=== PATIENT | female | born 2005 | race Two or more races ===

== ENCOUNTER 2024-07-15 14:40 | Inpatient (IN) | payer MEDICAID, OTHER ==
[~2024-07-15] VITALS: Ht 162.6 cm; Wt 68.9 kg
--- NOTE | 2024-07-15 15:01 | ED.PDOC ---
GI ASSESSMENT HPI Comments 19 year old female accompanied by mother presents to the ED with chief complaint of abdominal pain. Patient reports that she has been experiencing 11/16 RUQ abdominal pain that radiates to her back for the past 24 hours. Patient relays that she has history of gallstones, confirmed by US ordered by her PCP a month ago. Patient states she has an upcoming appointment in 2-3 weeks for surgery, however, her pain has worsened and is lasting longer than it usually does. Patient denies any N/V/D, fever, chills, dysuria, dizziness, or chest pain. Time Seen by MD: 14:57 Reviewed Notes: Nurses Notes, Medications, Allergies Allergies: Coded Allergies: NO KNOWN ALLERGIES (Unverified , 07/15/24) Information Source: Patient, Relative (Mother) Mode of Arrival: Ambulatory Timing: Days Duration: Since onset Prehospital treatment: None Quality: Sharp Vomitus: None Stool: Normal Severity: Moderate Recent: None Recent Hx of: None Pain Location: RUQ Modifying Factors: Nothing Associated sign and symptoms: Abdominal Pain Past Medical History PAST MEDICAL HISTORY: Gallstones Surgical History (Other): Lt ovarian tumor removal SOLAR ENERGY SPECIALIST History: Denies all SOLAR ENERGY SPECIALIST Hx Family History Family History: Reviewed,noncontributory to illness Social History Smoker: Non-Smoker Alcohol: Denies ETOH Use Drugs: Denies Drug Use Lives In: Home Constitutional: denies: chills, diaphoresis, fatigue, fever, malaise, sweats, weakness, others EENTM: denies: blurred vision, double vision, ear bleeding, ear discharge, ear drainage, ear pain, ear ringing, eye pain, eye redness, hearing loss, mouth pain, mouth swelling, nasal discharge, nose bleeding, nose congestion, nose pain, photophobia, tearing, throat pain, throat swelling, voice changes, others Respiratory: denies: cough, hemoptysis, orthopnea, SOB at rest, shortness of breath, SOB with excertion, stridor, wheezing, others Cardiovascular: denies: chest pain, dizzy spells, diaphoresis, Dyspnea on exertion, edema, irregular heart beat, left arm pain, lightheadedness, palpitations, PND, syncope, others Gastrointestinal: reports: abdominal pain; denies: abdomen distended, blood streaked bowels, constipated, diarrhea, dysphagia, difficulty swallowing, hematemesis, melena, nausea, poor appetite, poor fluid intake, rectal bleeding, rectal pain, vomiting, others Genitourinary: denies: abnormal vagina bleeding, burning, dyspareunia, dysuria, flank pain, frequency, hematuria, incontinence, pain, , vagina discharge, urgency, others Neurological: denies: dizziness, fainting, headache, left sided numbness, left sided weakness, numbness, paresthesia, pre-existing deficit, right sided numbness, right sided weakness, seizure, speech problems, tingling, tremors, weakness, others Musculoskeletal: denies: back pain, gout, joint pain, joint swelling, muscle pain, muscle stiffness, neck pain, others Integumetry: denies: bruises, change in color, change in hair/nails, dryness, laceration, lesions, lumps, rash, wounds, others Allergic/Immunocompromised: denies: Difficulty Healing, Frequent Infections, Hives, Itching, others Hematologic/Lymphatic: denies: anemia, blood clots, easy bleeding, easy bruising, swollen glands, others Endocrine: denies: excessive hunger, excessive sweating, excessive thirst, excessive urination, flushing, intolerance to cold, intolerance to heat, unexplained weight gain, unexplained weight loss, others Psychiatric: denies: anxiety, bipolar disorder, depression, hopeless, panic disorder, schizophrenia, sleepless, suicidal, others All Other Systems: Reviewed and Negative Physical Exam General Appearance: Moderate Distress HEENT: Normal ENT Inspection, Pharynx Normal, TMs Normal Neck: Full Range of Motion, Non-Tender, Normal, Normal Inspection Respiratory: Chest Non-Tender, Lungs Clear, No Accessory Muscle Use, No Respiratory Distress, Normal Breath Sounds Cardiovascular: No Edema, No JVD, No Murmur, No Gallop, Normal Peripheral P ulses, Regular Rate/Rhythm Breast Exam: Deferred Gastrointestinal: Epigastric, No Organomegaly, No Pulsatile Mass, Normal Bowel Sounds, Soft, Tenderness Genitalia: Deferred Pelvic: Deferred Rectal: Deferred Extremities: No calf tenderness, Normal capillary refill, Normal inspection, Normal range of motion, Non-tender, No pedal edema Musculoskeletal : Apperance: Normal Neurologic: Alert, materials planning analyst II-XII nml as Tested, No Motor Deficits, Normal Affect, Normal Mood, No Sensory Deficits Cerebellar Function: Normal Reflexes: Normal Skin: Dry, Normal Color, Warm Lymphatic: No Adenopathy Was a procedure done? Was a procedure done?: No GI differential Dx Differential Diagnosis: Appendicitis, Cholangitis, Cholecystitis, Gastritis/PUD, Gastroenteritis X-Ray, Labs, Meds, VS Vital Signs Date Time Temp Pulse Resp B/P (MAP) Pulse Ox O2 Delivery O2 Flow Rate FiO2 07/15/24 16:42 70 18 121/75 07/15/24 16:22 85 17 100 Room Air* 0 21 07/15/24 16:22 98.0 85 17 137/71 (93) 100 98.0 07/15/24 16:12 85 18 137/71 07/15/24 15:03 98.3 78 15 121/80 (94) 97 98.3 Lab Test 07/15/24 15:07 07/15/24 15:00 Range/Units White Blood Count 8.5 4.4-10.8 10^3/uL Red Blood Count 4.45 4.0-5.20 10^6/uL Hemoglobin 14.0 12.2-16.2 g/dL Hematocrit 41.7 36.0-46.0 % Mean Corpuscular Volume 93.7 80.0-100.0 fL Mean Corpuscular Hemoglobin 31.4 28.0-32.0 pg Mean Corpuscular Hemoglobin Concent 33.5 32.0-36.0 g/dL Red Cell Distribution Width 13.2 11.8-14.3 % Platelet Count 322 140-450 10^3/uL Mean Platelet Volume 7.3 6.9-10.8 fL Neutrophils (%) (Auto) 63.1 37.0-80.0 % Lymphocytes (%) (Auto) 25.5 10.0-50.0 % Monocytes (%) (Auto) 10.0 0.0-12.0 % Eosinophils (%) (Auto) 0.8 0.0-7.0 % Basophils (%) (Auto) 0.6 0.0-2.0 % Neutrophils # (Auto) 5.4 1.6-8.6 10 ^3/uL Lymphocytes # (Auto) 2.2 0.4-5.4 10 ^3/uL Monocytes # (Auto) 0.8 0-1.3 10 ^3/uL Eosinophils # (Auto) 0.1 0-0.8 10 ^3/uL Basophils # (Auto) 0 0-0.2 10 ^3/uL Nucleated Red Blood Cells 0.1 % Sodium Level 138 136-145 mmol/L Potassium Level 4.1 3.5-5.1 mmol/L Chloride Level 103 98-107 mmol/L Carbon Dioxide Level 29 20-31 mmol/L Anion Gap 6 5-15 Blood Urea Nitrogen 10 9-23 mg/dL Creatinine 0.71 0.550-1.02 mg/dL Glomerular Filtration Rate Calc 125 >90 mL/min BUN/Creatinine Ratio 14.1 10.0-20.0 Serum Glucose 86 74-106 mg/dL Calcium Level 10.6 H 8.7-10.4 mg/dL Total Bilirubin 0.3 0.2-1.0 mg/dL Aspartate Amino Transferase (AST) 20 13-40 U/L Alanine Aminotransferase (ALT) 22 7-40 U/L Alkaline Phosphatase 67 46-116 U/L Total Protein 7.4 5.7-8.2 g/dL Albumin 4.8 3.2-4.8 g/dL Lipase 50 12-53 U/L Urine Color Colorless Yellow Urine Clarity Turbid H Clear Urine pH 7.0 5.0-9.0 Urine Specific [place] 1.014 1.001-1.035 Urine Protein Negative Negative Urine Ketones Negative Negative Urine Blood 2+ H Negative /uL Urine Nitrite Negative Negative Urine Bilirubin Negative Negative Urine Urobilinogen Normal Negative mg/dL Urine Leukocyte Esterase Trace Negative /uL Urine RBC 1 0 - 4 /hpf Urine Microscopic WBC 3 0-5 /HPF Urine Squamous Epithelial Cells Few <5 /hpf Urine Bacteria Few H None Seen /hpf Urine Yeast (Budding) Few None Seen /hpf Urine Glucose Normal Normal mg/dL Urine Test Negative Negative Current Medications Medications (Trade) Dose Ordered Sig/Frank Route Start Time Stop Time Status Last Admin Ondansetron HCl (Zofran) 4 mg ONCE ONCE IV 07/15/24 15:00 07/15/24 15:01 DC 07/15/24 16:08 Sodium Chloride 1,000 ml @ 1,000 mls/hr Q1H ONCE IVB 07/15/24 15:00 07/15/24 15:59 DC 07/15/24 16:08 Morphine Sulfate 4 mg ONCE ONCE IV 07/15/24 15:00 07/15/24 15:01 DC 07/15/24 16:12 Pantoprazole Sodium (Protonix) 40 mg ONCE ONCE IV 07/15/24 15:00 07/15/24 15:01 DC 07/15/24 16:08 Ultrasound of the gallbladder shows: IMPRESSION: 1. Cholelithiasis and probable cholecystitis The patient's CBC and chemistry panel are within normal limits. The urine test is negative for infection at this time The test is negative The patient was given a bolus of normal saline at 1 L bolus The patient was given morphine 4 mg IV push for the pain The patient was given Zofran 4 mg IV push for the nausea The patient was given Protonix 40 mg IV push The patient was being admitted to the hospitalist Images Reviewed?: Images reviewed and evaluated by me Time of 1ST Reevaluation: 17:41 Reevaluation 1ST: Unchanged Patient Education/Counseling: Diagnosis, Treatment, Prognosis Family Education/Counseling: Diagnosis, Treatment, Prognosis Additional Information -Reviewed patient's previous visit(s): None - The following tests were ordered, and results were reviewed by me: Gallbladder US, CBC, CMP, Lipase, UA, Urine preg - Additional information was gathered from interviewing the following independent Historian: Mother - I reviewed and agreed with the following test results read by other provider: Gallbladder US - I discussed treatments and results with medical personnel and: patient and mother Comprehensive systems review obtained and negative except for what is stated in the HPI. Departure 1 Departure Time of Disposition: 17:41 Impression: Primary Impression: Intractable abdominal pain Additional Impression: Acute cholecystitis Disposition: ADMITTED INPATIENT Admit to: Med Surg Condition: Fair Critical Care Note Critical Care Time?: No Stability Stability form required: Yes Unstable for transfer: ED Physician Assesment (Clinical assesment) Heart Score Heart Score: Heart Score Response (Comments) Value History N/A 0 EKG N/A 0 Age N/A 0 Risk Factors N/A 0 Troponin N/A 0 Total 0 I personally scribed for СЕРГЕЙ GRIDER MD ([email or web address]) on 07/15/24 at 15:01. Electronically submitted by Abdon Fields ([email or web address]). I personally scribed for СЕРГЕЙ GRIDER MD ([email or web address]) on 07/15/24 at 15:02. Electronically submitted by Abdon Fields ([email or web address]). СЕРГЕЙ GRIDER MD Jul 15, 2024 15:01
[2024-07-15 15:26] LABS: Basophils # (auto) 0 10 ^3/uL (0-0.2); Basophils % (auto) 0.6 % (0.0-2.0); Eosinophils # (auto) 0.1 10 ^3/uL (0-0.8); Eosinophils % (auto) 0.8 % (0.0-7.0); Hematocrit 41.7 % (36.0-46.0); Lymphocytes # (auto) 2.2 10 ^3/uL (0.4-5.4); Lymphocytes % (auto) 25.5 % (10.0-50.0); Mean Corpuscular Hemoglobin 31.4 pg (28.0-32.0); Mean Corpuscular Hgb Conc. 33.5 g/dL (32.0-36.0); Mean Corpuscular Volume 93.7 fL (80.0-100.0); Monocytes # (auto) 0.8 10 ^3/uL (0-1.3); Neutrophils # (auto) 5.4 10 ^3/uL (1.6-8.6); Neutrophils % (auto) 63.1 % (37.0-80.0); Nucleated Red Blood Cells % 0.1 %; Platelet Count (auto) 322 10^3/uL (140-450); Red Blood Cells 4.45 10^6/uL (4.0-5.20); Red Cell Distribution Width 13.2 % (11.8-14.3); White Blood Cell 8.5 10^3/uL (4.4-10.8)
[2024-07-15 15:37] LABS: Alanine Aminotransferase 22 U/L (7-40); Albumin 4.8 g/dL (3.2-4.8); Alkaline Phosphatase 67 U/L (46-116); Anion Gap 6 (5-15); Aspartate Aminotransferase 20 U/L (13-40); BUN/Creatinine Ratio 14.1 (10.0-20.0); Blood Urea Nitrogen 10 mg/dL (9-23); Carbon Dioxide 29 mmol/L (20-31); Chloride 103 mmol/L (98-107); Glucose 86 mg/dL (74-106); Lipase 50 U/L (12-53); Potassium 4.1 mmol/L (3.5-5.1); Sodium 138 mmol/L (136-145); Total Protein 7.4 g/dL (5.7-8.2)
[2024-07-15 15:38] LABS: Bilirubin, Total 0.3 mg/dL (0.2-1.0); Calcium 10.6 mg/dL (8.7-10.4)
[2024-07-15] MEDS: SODIUM CHLORIDE 0.9% 1,000 ML IVB ONE (16:08)
[2024-07-15] MEDS: PANTOPRAZOLE 40 MG/10 ML VIAL INJ IV ONE (16:08)
[2024-07-15] MEDS: ONDANSETRON HCL 4 MG/2 ML VIAL IV ONE (16:08)
[2024-07-15] MEDS: MORPHINE SULFATE 4 MG/ML SYR/VIAL IV ONE (16:12)
[2024-07-15 16:22] VITALS: PULSE 85; RESP 17; O2SAT 100
--- NOTE | 2024-07-15 16:29 | DVH ---
EXAM: US GALLBLADDER HISTORY: pain COMPARISON: None TECHNIQUE: Right upper quadrant ultrasound was performed. FINDINGS: The liver is heterogeneous but normal in echotexture. Liver measures 16.65 cm in span. Portal vein flow is hepatopetal. There are innumerable gallstones in the gallbladder. largest measures 7.25 mm. Gallbladder wall measures 3.3 mm which is abnormal. Right kidney measures 9.7 cm in length out cyst stone or hydronephrosis.. There was a positive can filling machine operator is Araujo's sign IMPRESSION: 1. Cholelithiasis and probable cholecystitis
[2024-07-15 16:41] LABS: Urine Bacteria FEW /hpf (None Seen); Urine Blood 2+ /uL (Negative); Urine Budding Yeast FEW /hpf (None Seen); Urine Clarity Turbid (Clear); Urine Color Colorless (Yellow); Urine Protein, UAD Negative (Negative); Urine Specific Gravity 1.014 (1.001-1.035); Urine Squamous Epithelial Cell FEW /hpf (<5); Urine Urobilinogen Normal (Negative); Urine WBC 3 /HPF (0-5)
[2024-07-16] MEDS: PANTOPRAZOLE 40 MG/10 ML VIAL INJ IV ONE ×2 (00:45→08:35)
[2024-07-16] MEDS: ONDANSETRON HCL 4 MG/2 ML VIAL IV ONE ×2 (02:22→07:45)
[2024-07-16] MEDS: cefTRIAXone 1GM/50ML D5W 50 ML IV ONE (02:22)
[2024-07-16] MEDS: MORPHINE SULFATE INJ 2 MG/ml SYRG IV ONE (02:23)
[2024-07-16] MEDS: metroNIDAZOLE 500MG/100ML 100 ML IV ONE (03:52)
[2024-07-16] MEDS: SODIUM CHLORIDE 0.9% 1,000 ML IV ONE (03:57)
[2024-07-16 04:58] VITALS: BP 116/74; PULSE 63; RESP 16; TEMP 97.5; O2SAT 100
--- NOTE | 2024-07-16 07:49 | DVHPNRES ---
Progress Note Date Seen: Jul 16, 2024 Resident Creating Document: EBEN CHAVEZ ANDREA Has the PT tested + for MRSA If YES, has PT been informed?: No Medical Necessity Reason Pt with a Central, PICC or Fol: No Subjective Review of Systems Patient seen and examined at the bedside. Patient underwent laparoscopic cholecystectomy, with no preoperative and postop complication. Patient lying comfortably on bed with no active complaint. Patient reports: No new complaints, Feels better Objective vital signs Vital Sign Date Time Temp Pulse Resp B/P (MAP) Pulse Ox O2 Delivery O2 Flow Rate FiO2 07/16/24 04:58 63 16 100 Room Air* 0 21 07/16/24 04:58 97.5 116/74 (88) 97.5 Total Intake and Output 07/15/24 07/15/24 07/16/24 15:00 23:00 07:00 Intake Total 1000 ml Balance 1000 ml medications General Appearance: Alert, Oriented X3, Cooperative, No acute distress HEENT: Atraumatic, PERRLA, EOMI, Mucous membrane moist/pink Respiratory: Clear to auscultation, Normal air movement Cardiovascular: Regular rate, Normal S1, Normal S2, No murmurs, no chest wall tenderness Abdominal: Abdomen is soft and mildly tender, dressings are intact with no active bleeding or inflammation around the surgical area. Extremities: No clubbing, No cyanosis, No edema, Normal pulses, No tenderness/swelling Skin: No rashes, No breakdown, No significant lesion Neuro: Normal gait, Normal speech, Strength at 5/5 X4 ext, Normal tone, Sensation intact, Cranial nerves 3-12 NL, Reflexes 2+ Psych/Mental Status: Mental status NL, Mood NL Examination General Appearance: Alert, Oriented X3, Cooperative, No acute distress HEENT: Atraumatic, PERRLA, EOMI, Mucous membrane moist/pink Respiratory: Clear to auscultation, Normal air movement Cardiovascular: Regular rate, Normal S1, Normal S2, No murmurs, no chest wall tenderness Abdominal: Reports abdominal pain, nausea and vomiting Extremities: No clubbing, No cyanosis, No edema, Normal pulses, No tenderness/swelling Skin: No rashes, No breakdown, No significant lesion Neuro: Normal gait, Normal speech, Strength at 5/5 X4 ext, Normal tone, Sensation intact, Cranial nerves 3-12 NL, Reflexes 2+ Psych/Mental Status: Mental status NL, Mood NL laboratory and microbiology Laboratory Tests 07/15/24 15:07 Test 07/15/24 15:07 Range/Units Serum Glucose 86 74-106 mg/dL Labs and/or images reviewed: Labs reviewed by me, Image(s) reviewed by me Problem List/Assessment/Plan Problem List/Assessment/Plan Gallstone with cholecystitis Status post laparoscopic cholecystectomy with no perioperative and postop complication, abdomen is soft, mildly tender, dressings are intact with no active bleeding or inflammation seen around the surgical area. IV fluid Empiric antibiotic, Flagyl and Cipro Pain management Asthma, stable Continue home meds DIET: Clear liquid diet GI PROPHYLAXIS:: Protonix CODE STATUS: Goal of care discussed for more than 18 minutes, full code DISPOSITION: Med/surge Patient's status and plan discussed with the patient at patient's mother and grandmother at bedside. Case discussed with Dr. Junior. Plan discussed with: Patient, Other (Mother and grandmother at the bedside, and RN) My Orders My Orders Orders - EBEN CHAVEZ RESDIENT Procedure Category Date Status Time Complete Blood Count LAB 07/16/24 Transmitted 07:45 Comprehensive LAB 07/16/24 Transmitted Metabolic Panel 07:45 Magnesium LAB 07/16/24 Transmitted 07:45 Thyroid Stimulating LAB 07/16/24 Transmitted Hormone 07:45 Lipid Panel LAB 07/16/24 Verified 07:45 Drug Screen LAB 07/16/24 Verified 07:45 PTPTT LAB 07/16/24 Verified 07:45 D-Dimer LAB 07/16/24 Verified 07:45 Pantoprazole PHA 07/16/24 Verified (Protonix) 07:45 Pantoprazole PHA 07/16/24 Verified (Protonix) 10:00 Ondansetron Hcl PHA 07/16/24 Verified (Zofran) 07:45 Ondansetron Hcl PHA 07/16/24 Verified (Zofran) 07:45 Metronidazole Ivpb PHA 07/16/24 Verified Flagyl 14:00 Ciprofloxacin PHA 07/16/24 Verified 400mg/200ml (Cipro Iv) 10:00 * Surgical Consult CONS 07/16/24 Verified 07:45 Morphine Sulfate PHA 07/16/24 Verified Injection 07:45 Electrocardigram EKG 07/16/24 Verified 07:45 Troponin-I Hs LAB 4/9/25 Verified 07:45 Date of Service: Jul 16, 2024 Billing Provider: MARIUM ANDERS MD Common Visit Codes: [id number] INP/OBS CARE(HIGH) EBEN CHAVEZ Jul 16, 2024 07:49 MARIUM ANDERS MD Jul 21, 2024 09:39
[2024-07-16] MEDS: MORPHINE SULFATE INJ 2 MG/ml SYRG IV PRN ×2 (08:35→23:11)
[2024-07-16 08:38] LABS: Basophils # (auto) 0 10 ^3/uL (0-0.2); Basophils % (auto) 0.2 % (0.0-2.0); Eosinophils # (auto) 0.1 10 ^3/uL (0-0.8); Eosinophils % (auto) 1.9 % (0.0-7.0); Hematocrit 37.4 % (36.0-46.0); Hemoglobin 12.6 g/dL (12.2-16.2); Lymphocytes # (auto) 2.3 10 ^3/uL (0.4-5.4); Lymphocytes % (auto) 33.9 % (10.0-50.0); Mean Corpuscular Hemoglobin 31.7 pg (28.0-32.0); Mean Corpuscular Hgb Conc. 33.7 g/dL (32.0-36.0); Monocytes # (auto) 0.6 10 ^3/uL (0-1.3); Monocytes % (auto) 8.1 % (0.0-12.0); Neutrophils # (auto) 3.8 10 ^3/uL (1.6-8.6); Neutrophils % (auto) 55.9 % (37.0-80.0); Platelet Count (auto) 263 10^3/uL (140-450); Red Blood Cells 3.98 10^6/uL (4.0-5.20); Red Cell Distribution Width 12.8 % (11.8-14.3); White Blood Cell 6.9 10^3/uL (4.4-10.8)
[2024-07-16 08:50] LABS: Alanine Aminotransferase 20 U/L (7-40); Alkaline Phosphatase 53 U/L (46-116); Anion Gap 5 (5-15); Aspartate Aminotransferase 16 U/L (13-40); BUN/Creatinine Ratio 13.9 (10.0-20.0); Blood Urea Nitrogen 10 mg/dL (9-23); Calcium 9.3 mg/dL (8.7-10.4); Carbon Dioxide 30 mmol/L (20-31); Chloride 105 mmol/L (98-107); Glucose 79 mg/dL (74-106); LDL Cholesterol 61 mg/dL (< 100); Magnesium 2.1 mg/dL (1.6-2.6); Sodium 140 mmol/L (136-145); Total Protein 6.3 g/dL (5.7-8.2); Triglycerides 46 mg/dL (< 150)
[2024-07-16 08:51] LABS: Bilirubin, Total 0.6 mg/dL (0.2-1.0); Cholesterol 141 mg/dL (< 200); HDL Cholesterol 70 mg/dL (40-59)
[2024-07-16 09:00] VITALS: BP 103/62; PULSE 60; RESP 16; TEMP 97.6; O2SAT 96
--- NOTE | 2024-07-16 09:03 | DVHHPRES ---
History of Present Illness Resident Creating Document: NIDHI LINTON RESIDENT History of Present Illness 19 F with PMH of GB stones , presented with complaints of RUQ abd pain associated with Nausea for last 1 day. pt mentions she has been seeing surgery for GB stones and was planning to have elective cholecystectomy. Patient describes her pain as 8/10, right upper quadrant, radiating to back. She denied any complaints of vomiting, diarrhea, constipation, hematochezia, melena Denied any chest pain, shortness of breath, dizziness, headache Past medical history GB stones Pots Past surgical history Left ovarian tumor removal July 2022 Social history Denied smoking, alcohol, marijuana or any other drug intake Medication history Fludrocortisone Allergic history Denied Review of Systems Review of Systems ROS Constitutional: No: Fever, Chills, Sweats, Weakness, Malaise, Other Eyes: No: Pain, Vision change, Conjunctivae inflammation, Eyelid inflammation, Other, Redness ENT: No: Ear pain, Ear discharge, Nose pain, Nose discharge, Nose congestion, Mouth pain, Mouth swelling, Throat pain, Throat swelling, Other Respiratory: No: Cough, Dry, Shortness of breath, SOB with excertion, Wheezing, Hemoptysis, Pleuritic Pain, Sputum, Wheezing, Other Cardiovascular: No: Chest Pain, Palpitations, Orthopnea, Paroxysmal Noc. Dyspnea, Edema, Lt Headedness, Other Gastrointestinal: Abdominal pain, nausea, denied vomiting, hematochezia, melena Musculoskeletal: No: other, neck pain, shoulder pain, arm pain, back pain, hand pain, leg pain, foot pain Neurological:; No: Weakness, Numbness, Incoordination, Change in speech, Confusion, Seizures Allergies: Coded Allergies: NO KNOWN ALLERGIES (Unverified , 07/15/24) Medications Current Medications Medications Dose Ordered Sig/Frank Route Start Time Stop Time Status Last Admin Dose Admin Pantoprazole Sodium 40 mg DAILY IV 07/17/24 10:00 Ondansetron HCl 4 mg Q4HPRN PRN IV 07/16/24 07:45 Metronidazole 100 ml @ 100 mls/hr Q8HR IV 07/16/24 14:00 Ciprofloxacin 200 ml @ 200 mls/hr Q12HR IV 07/16/24 10:00 Morphine Sulfate 1 mg Q4HP PRN IV 07/16/24 07:45 07/16/24 08:35 1 MG Exam Vital Signs Vital Signs Date Time Temp Pulse Resp B/P (MAP) Pulse Ox O2 Delivery O2 Flow Rate FiO2 07/16/24 08:35 60 16 103/62 07/16/24 04:58 100 Room Air* 0 21 07/16/24 04:58 97.5 97.5 Exam Examination General Appearance: Alert, Oriented X3, Cooperative, No acute distress HEENT: EOMI Respiratory: Clear to auscultation, Normal air movement Cardiovascular: Regular rate, Normal S1, Normal S2 Abdominal: Right upper quadrant and dizziness, Araujo sign positive Extremities: No cyanosis, No edema, Normal pulses, No tenderness/swelling Skin: No rashes, No breakdown Neuro: Normal gait, Normal speech, Strength at 5/5 X4 ext, Normal tone, Sensation intact, Cranial nerves 3-12 NL, Reflexes 2+ Psych/Mental Status: Mental status NL, Mood NL Labs/Xrays Labs Test 07/16/24 08:16 07/15/24 15:07 07/15/24 15:00 Range/Units White Blood Count 6.9 4.4-10.8 10^3/uL Red Blood Count 3.98 L 4.0-5.20 10^6/uL Hemoglobin 12.6 12.2-16.2 g/dL Hematocrit 37.4 # 36.0-46.0 % Mean Corpuscular Volume 94.0 80.0-100.0 fL Mean Corpuscular Hemoglobin 31.7 28.0-32.0 pg Mean Corpuscular Hemoglobin Concent 33.7 32.0-36.0 g/dL Red Cell Distribution Width 12.8 11.8-14.3 % Platelet Count 263 140-450 10^3/uL Mean Platelet Volume 6.9 6.9-10.8 fL Neutrophils (%) (Auto) 55.9 37.0-80.0 % Lymphocytes (%) (Auto) 33.9 10.0-50.0 % Monocytes (%) (Auto) 8.1 0.0-12.0 % Eosinophils (%) (Auto) 1.9 0.0-7.0 % Basophils (%) (Auto) 0.2 0.0-2.0 % Neutrophils # (Auto) 3.8 1.6-8.6 10 ^3/uL Lymphocytes # (Auto) 2.3 0.4-5.4 10 ^3/uL Monocytes # (Auto) 0.6 0-1.3 10 ^3/uL Eosinophils # (Auto) 0.1 0-0.8 10 ^3/uL Basophils # (Auto) 0 0-0.2 10 ^3/uL Nucleated Red Blood Cells 0.0 % Sodium Level 140 136-145 mmol/L Potassium Level 4.0 3.5-5.1 mmol/L Chloride Level 105 98-107 mmol/L Carbon Dioxide Level 30 20-31 mmol/L Anion Gap 5 5-15 Blood Urea Nitrogen 10 9-23 mg/dL Creatinine 0.72 0.550-1.02 mg/dL Glomerular Filtration Rate Calc 123 >90 mL/min BUN/Creatinine Ratio 13.9 10.0-20.0 Serum Glucose 79 74-106 mg/dL Calcium Level 9.3 8.7-10.4 mg/dL Magnesium Level 2.1 1.6-2.6 mg/dL Total Bilirubin 0.6 0.2-1.0 mg/dL Aspartate Amino Transferase (AST) 16 13-40 U/L Alanine Aminotransferase (ALT) 20 7-40 U/L Alkaline Phosphatase 53 46-116 U/L Troponin I High Sensitivity < 3 L </=34 ng/L Total Protein 6.3 5.7-8.2 g/dL Albumin 4.0 3.2-4.8 g/dL Triglycerides Level 46 < 150 mg/dL Cholesterol Level 141 < 200 mg/dL LDL Cholesterol 61 < 100 mg/dL HDL Cholesterol 70 H 40-59 mg/dL Thyroid Stimulating Hormone (TSH) 1.21 0.55-4.78 uIU/mL Lipase 50 12-53 U/L Urine Color Colorless Yellow Urine Clarity Turbid H Clear Urine pH 7.0 5.0-9.0 Urine Specific [place] 1.014 1.001-1.035 Urine Protein Negative Negative Urine Ketones Negative Negative Urine Blood 2+ H Negative /uL Urine Nitrite Negative Negative Urine Bilirubin Negative Negative Urine Urobilinogen Normal Negative mg/dL Urine Leukocyte Esterase Trace Negative /uL Urine RBC 1 0 - 4 /hpf Urine Microscopic WBC 3 0-5 /HPF Urine Squamous Epithelial Cells Few <5 /hpf Urine Bacteria Few H None Seen /hpf Urine Yeast (Budding) Few None Seen /hpf Urine Glucose Normal Normal mg/dL Urine Test Negative Negative Assessment/Plan Assessment/Plan Assessment/plan # cholelithiasis with cholecystitis Seen on gallbladder ultrasound IV fluids IV antibiotics Pain medication Zofran p.r.n. Surgical consult # POTS Continue home medication fludrocortisone Case discussion with Dr. Llamas Plan discussed with: Other My Orders Orders - NIDHI LINTON RESIDENT Procedure Category Date Status Time Admit ADMIT 07/16/24 Transmitted 00:44 Oxygen By Nasal RT 07/16/24 Transmitted Cannula 00:44 Stat Ekg For Chest [facility] 07/16/24 In Process Pain 00:44 Notify Md Of Changes [facility] 07/16/24 In Process From Base 00:44 Social Security Benefits Interviewer For [facility] 07/16/24 In Process 24 Hours 00:44 Emergency Dysrhythmia [facility] 07/16/24 In Process Protocol 00:44 Rhythm Strips Once [facility] 07/16/24 In Process Every Shift 00:44 Sodium Chloride 0.9% PHA 07/16/24 In Process 00:45 Npo Except Ice Chips ORDERS 07/16/24 Transmitted 00:44 Date of Service: Jul 16, 2024 Billing Provider: ROBERT LLAMAS MD Common Visit Codes: [id number] INP/OBS CARE (HIGH) NIDHI LINTON Jul 16, 2024 09:03 ROBERT LLAMAS MD Jul 16, 2024 11:20
[2024-07-16] MEDS: CIPROFLOXACIN 400MG/200ML 200 ML IV SCH (09:53)
[2024-07-16 10:03] LABS: INR 1.03 (0.9-1.15); Partial Thromboplastin Time 27.4 SEC (24.5-34.5); Prothrombin Time 10.9 sec (9.3-11.8)
[2024-07-16 13:00] VITALS: BP 107/68; PULSE 74; RESP 15; TEMP 97.7; O2SAT 99
[2024-07-16] MEDS: FLUDROCORTISONE ACETATE 0.1 MG TAB PO ONE (14:33)
[2024-07-16] MEDS: metroNIDAZOLE 500MG/100ML 100 ML IV SCH (14:33)
--- NOTE | 2024-07-16 15:39 | DVHINCON2 ---
Date of service: Jul 16, 2024 Allergies: Coded Allergies: NO KNOWN ALLERGIES (Unverified , 07/15/24) Current Medications Current Medications Medications (Trade) Dose Ordered Sig/Frank Route PRN Reason Start Time Stop Time Status Last Admin Pantoprazole Sodium (Protonix) 40 mg DAILY IV 07/17/24 10:00 Ondansetron HCl (Zofran) 4 mg Q4HPRN PRN IV NAUSEA / VOMITING 07/16/24 07:45 Metronidazole 100 ml @ 100 mls/hr Q8HR IV 07/16/24 14:00 07/16/24 14:33 Ciprofloxacin 200 ml @ 200 mls/hr Q12HR IV 07/16/24 10:00 07/16/24 09:53 Morphine Sulfate 1 mg Q4HP PRN IV SEVERE PAIN (7-10 PAIN SCALE) 07/16/24 07:45 07/16/24 13:15 Fludrocortisone Acetate (Florinef Tablet) 0.1 mg DAILY PO 07/17/24 10:00 Vital Signs Vital Signs Date Time Temp Pulse Resp B/P (MAP) Pulse Ox O2 Delivery O2 Flow Rate FiO2 07/16/24 13:45 74 15 107/68 07/16/24 13:00 97.7 99 97.7 07/16/24 04:58 Room Air* 0 21 Labs/Diagnostic Data Labs Test 07/16/24 08:16 07/15/24 15:07 07/15/24 15:00 Range/Units White Blood Count 6.9 4.4-10.8 10^3/uL Red Blood Count 3.98 L 4.0-5.20 10^6/uL Hemoglobin 12.6 12.2-16.2 g/dL Hematocrit 37.4 # 36.0-46.0 % Mean Corpuscular Volume 94.0 80.0-100.0 fL Mean Corpuscular Hemoglobin 31.7 28.0-32.0 pg Mean Corpuscular Hemoglobin Concent 33.7 32.0-36.0 g/dL Red Cell Distribution Width 12.8 11.8-14.3 % Platelet Count 263 140-450 10^3/uL Mean Platelet Volume 6.9 6.9-10.8 fL Neutrophils (%) (Auto) 55.9 37.0-80.0 % Lymphocytes (%) (Auto) 33.9 10.0-50.0 % Monocytes (%) (Auto) 8.1 0.0-12.0 % Eosinophils (%) (Auto) 1.9 0.0-7.0 % Basophils (%) (Auto) 0.2 0.0-2.0 % Neutrophils # (Auto) 3.8 1.6-8.6 10 ^3/uL Lymphocytes # (Auto) 2.3 0.4-5.4 10 ^3/uL Monocytes # (Auto) 0.6 0-1.3 10 ^3/uL Eosinophils # (Auto) 0.1 0-0.8 10 ^3/uL Basophils # (Auto) 0 0-0.2 10 ^3/uL Nucleated Red Blood Cells 0.0 % Prothrombin Time 10.9 9.3-11.8 sec Prothrombin Time INR 1.03 0.9-1.15 Activated Partial Thromboplast Time 27.4 24.5-34.5 SEC D-Dimer, Quantitative < 0.19 0.0-0.49 mg/L FEU Sodium Level 140 136-145 mmol/L Potassium Level 4.0 3.5-5.1 mmol/L Chloride Level 105 98-107 mmol/L Carbon Dioxide Level 30 20-31 mmol/L Anion Gap 5 5-15 Blood Urea Nitrogen 10 9-23 mg/dL Creatinine 0.72 0.550-1.02 mg/dL Glomerular Filtration Rate Calc 123 >90 mL/min BUN/Creatinine Ratio 13.9 10.0-20.0 Serum Glucose 79 74-106 mg/dL Calcium Level 9.3 8.7-10.4 mg/dL Magnesium Level 2.1 1.6-2.6 mg/dL Total Bilirubin 0.6 0.2-1.0 mg/dL Aspartate Amino Transferase (AST) 16 13-40 U/L Alanine Aminotransferase (ALT) 20 7-40 U/L Alkaline Phosphatase 53 46-116 U/L Troponin I High Sensitivity < 3 L </=34 ng/L Total Protein 6.3 5.7-8.2 g/dL Albumin 4.0 3.2-4.8 g/dL Triglycerides Level 46 < 150 mg/dL Cholesterol Level 141 < 200 mg/dL LDL Cholesterol 61 < 100 mg/dL HDL Cholesterol 70 H 40-59 mg/dL Thyroid Stimulating Hormone (TSH) 1.21 0.55-4.78 uIU/mL Lipase 50 12-53 U/L Urine Color Colorless Yellow Urine Clarity Turbid H Clear Urine pH 7.0 5.0-9.0 Urine Specific [place] 1.014 1.001-1.035 Urine Protein Negative Negative Urine Ketones Negative Negative Urine Blood 2+ H Negative /uL Urine Nitrite Negative Negative Urine Bilirubin Negative Negative Urine Urobilinogen Normal Negative mg/dL Urine Leukocyte Esterase Trace Negative /uL Urine RBC 1 0 - 4 /hpf Urine Microscopic WBC 3 0-5 /HPF Urine Squamous Epithelial Cells Few <5 /hpf Urine Bacteria Few H None Seen /hpf Urine Yeast (Budding) Few None Seen /hpf Urine Glucose Normal Normal mg/dL Urine Test Negative Negative Assessment [id number] AFEBRILE VSS RUQ ABD PAIN AC CHOLECYSTITIS LAP/OPEN CHOLECYSTECTOMY AM Plan discussed with: Patient RENÉ PINO MD Jul 16, 2024 15:39
[2024-07-16 15:40] LABS: Amphetamine Screen, Urine Neg (NEGATIVE); Benzodiazephine Screen, Urine Neg (NEGATIVE)
[2024-07-16 15:41] LABS: Barbiturate Scree,Urine Neg (NEGATIVE); Cannabinoid Screen, Urine Neg (NEGATIVE); Cocaine Screen, Urine Neg (NEGATIVE); Opiate Scree,Urine Neg (NEGATIVE); Phencyclidine Screen, Urine Neg (NEGATIVE)
--- NOTE | 2024-07-16 15:46 | DVHINCON2 ---
DATE OF CONSULTATION: 07/16/2024 HISTORY OF PRESENT ILLNESS: 19 years old, coming in with right upper quadrant pain, diagnosed with acute cholecystitis on ultrasound and I was asked to see her with regards to possible surgery. She was scheduled for surgery, but apparently that did not happen, so the pain came back and she got admitted. PAST MEDICAL HISTORY: No diabetes, hypertension. PAST SURGICAL HISTORY: Ovarian tumor surgery. PHYSICAL EXAMINATION: VITAL SIGNS: Afebrile, stable signs. HEENT: With no evidence of pallor, cyanosis, or jaundice. NECK: Supple, nontender with no thyromegaly, lymphadenopathy. CHEST AND LUNGS: Clear. HEART: Within normal limits. ABDOMEN: Soft. She is tender in the right upper quadrant with minimal rebound. EXTREMITIES: Unremarkable. NEUROLOGIC: Intact. CLINICAL IMPRESSION: Acute cholecystitis. PLAN: Laparoscopic, possible open cholecystectomy. Benefits, risks discussed and a consent obtained. MD PRASHANT Osorio/LISA TID: [id number] RECEIPT: [id number] cc: Lambert Aldridge
[2024-07-16] MEDS: HYDROcodone-ACET 10/325MG TAB PO PRN (18:15)
[2024-07-16 20:00] VITALS: RESP 20
[2024-07-16 21:00] VITALS: BP 116/73; PULSE 71; RESP 18; TEMP 98.1; O2SAT 100
[2024-07-17] VITALS (8 sets, daily range): BP systolic 101–129; BP diastolic 50–71; PULSE 69–100; RESP 12–20; TEMP 97–98.1; O2SAT 92–100
[2024-07-17] MEDS: ONDANSETRON HCL 4 MG/2 ML VIAL IV PRN (05:30)
[2024-07-17 07:00] LABS: INR 1.04 (0.9-1.15); Partial Thromboplastin Time 24.7 SEC (24.5-34.5)
[2024-07-17 07:02] LABS: Basophils # (auto) 0 10 ^3/uL (0-0.2); Basophils % (auto) 0.3 % (0.0-2.0); Eosinophils # (auto) 0.1 10 ^3/uL (0-0.8); Eosinophils % (auto) 1.5 % (0.0-7.0); Hematocrit 40.4 % (36.0-46.0); Hemoglobin 13.8 g/dL (12.2-16.2); Lymphocytes # (auto) 2.1 10 ^3/uL (0.4-5.4); Lymphocytes % (auto) 30.9 % (10.0-50.0); Mean Corpuscular Hgb Conc. 34.2 g/dL (32.0-36.0); Mean Corpuscular Volume 93.7 fL (80.0-100.0); Monocytes # (auto) 0.7 10 ^3/uL (0-1.3); Monocytes % (auto) 9.5 % (0.0-12.0); Neutrophils % (auto) 57.8 % (37.0-80.0); Nucleated Red Blood Cells % 0.1 %; Platelet Count (auto) 268 10^3/uL (140-450); Red Blood Cells 4.31 10^6/uL (4.0-5.20); Red Cell Distribution Width 12.8 % (11.8-14.3); White Blood Cell 6.9 10^3/uL (4.4-10.8)
[2024-07-17 07:05] LABS: Alanine Aminotransferase 17 U/L (7-40); Alkaline Phosphatase 57 U/L (46-116); Anion Gap 12 (5-15); BUN/Creatinine Ratio 14.3 (10.0-20.0); Blood Urea Nitrogen 10 mg/dL (9-23); Calcium 9.6 mg/dL (8.7-10.4); Carbon Dioxide 25 mmol/L (20-31); Chloride 102 mmol/L (98-107); Sodium 139 mmol/L (136-145); Total Protein 6.7 g/dL (5.7-8.2)
[2024-07-17 07:06] LABS: Albumin 4.1 g/dL (3.2-4.8)
[2024-07-17 07:07] LABS: Aspartate Aminotransferase 17 U/L (13-40); Bilirubin, Total 0.7 mg/dL (0.2-1.0)
[2024-07-17 07:08] LABS: Glucose 67 mg/dL (74-106); Potassium 3.3 mmol/L (3.5-5.1)
[2024-07-17] MEDS: FLUDROCORTISONE ACETATE 0.1 MG TAB PO SCH (09:19)
[2024-07-17] MEDS: PANTOPRAZOLE 40 MG/10 ML VIAL INJ IV SCH (09:19)
[2024-07-17] MEDS: KETOROLAC TROMETH 30 MG/ML 1ML VIAL IV ONE (09:19)
[2024-07-17] MEDS ORDERED: ONDANSETRON HCL 4 MG/2 ML VIAL ONE (11:15)
[2024-07-17] MEDS ORDERED: DexAMETHasone SOD PHOS 10MG/1ML VIAL INJ ONE (11:15)
[2024-07-17] MEDS ORDERED: HYDROmorphone HCL 2 MG/ML VL/or syr ONE (11:15)
[2024-07-17] MEDS ORDERED: fentaNYL CITRATE 100 MCG/2 ML VL ONE (11:15)
[2024-07-17] MEDS ORDERED: PROPOFOL 10 MG/ML 20 ML IV ONE (11:15)
[2024-07-17] MEDS ORDERED: MIDAZOLAM HCL 2MG/2ML 2ml VIAL (1mg/ml) ONE (11:15)
[2024-07-17] MEDS ORDERED: GLYCOPYRROLATE 0.2 MG/ML 1ML VIAL ONE (11:15)
[2024-07-17] MEDS ORDERED: ePHEDrine SULFATE 50 MG/ML AMP ONE (11:15)
[2024-07-17] MEDS ORDERED: KETOROLAC TROMETH 30 MG/ML 1ML VIAL ONE (11:15)
[2024-07-17] MEDS: LIDOCAINE 1% HCL (LOCAL ANESTH.) INJ 20ML MDV ONE (11:18)
[2024-07-17] MEDS ORDERED: SUGAMMADEX 200mg/2ml Vial (100MG/ML) IV ONE (12:49)
[2024-07-17] MEDS: BUPIVACAINE HCL 0.25% P/F 10 ML VIAL ONE (12:56)
--- NOTE | 2024-07-17 13:05 | DVHOP2 ---
Operative Report [id number] AC CHOLECYSTITIS LAP CHOLECYSTECTOMY EBL 5 CC NO DRAINS NO COMPLICATIONS RENÉ PINO MD Jul 17, 2024 13:05
--- NOTE | 2024-07-17 13:14 | DVHOP ---
DATE OF SURGERY: 07/17/2024 PREOPERATIVE DIAGNOSIS: Acute cholecystitis. POSTOPERATIVE DIAGNOSIS: Acute cholecystitis. PROCEDURE: Laparoscopic cholecystectomy. SURGEON: Adilson Suarez MD PSYCHOMETRICIAN: None. ANESTHESIA: General. ESTIMATED BLOOD LOSS: Close to 5 mL. DRAINS: No drains were used. COMPLICATIONS: No complication encountered. DESCRIPTION OF PROCEDURE: The patient was prepped and draped in the usual sterile fashion in the supine position and an infraumbilical incision was applied, was taken down to the fascia. The Veress needle was introduced and CO2 insufflation was started to a pressure of 15 mmHg. The needle was withdrawn, replaced with a 5 mm trocar and a telescope was introduced and the gallbladder was visualized, was found acutely inflamed, distended. A 12 mm port was applied close to the xiphisternum and two 5 mm ports were applied more laterally in the subcostal line with instruments in place. The gallbladder was grasped at the fundus and at the infundibulum with the patient in the head up and right upper lateral position. The cystic duct and artery were , dissected out, clipped proximally and distally using the Hem-o-Lashonda clips and divided in between making sure the CBD was kept out of harm's way at all times. The gallbladder was detached from the liver bed using Harmonic dissection, placed in EndoCatch bag, removed from the xiphisternal wound without any complication. Hemostasis was secured. Irrigation fluid was removed. The port sites were free from bleeding. EndoClose suture was used for the fascial closure of the xiphisternal wound. All ports were withdrawn after all the CO2 had been let out and the patient was placed back supine. The wounds were then brought together using 3-0 Monocryl suture in a subcuticular fashion. Surgical glue was applied. The patient tolerated the procedure well and was taken back to recovery room in a stable condition. MD PRASHANT Osorio/DESMOND TID: [id number] RECEIPT: [id number] cc: Jun Junior
[2024-07-17] MEDS: ONDANSETRON HCL 4 MG/2 ML VIAL IV ONE (13:45)
[2024-07-17] MEDS ORDERED: HYDROmorphone HCL 2 MG/ML VL/or syr IV PRN (13:45)
--- NOTE | 2024-07-17 14:50 | DVHPNRES ---
Progress Note Date Seen: Jul 17, 2024 Resident Creating Document: EBEN CHAVEZ ANDREA Has the PT tested + for MRSA If YES, has PT been informed?: No Medical Necessity Reason Pt with a Central, PICC or Fol: No Subjective Review of Systems Patient is seen and examined at the bedside. Patient underwent laparoscopic cholecystectomy with no post and perioperative complication. Patient reports: Feels better Changes from previous H/P or p: Changes Objective vital signs Vital Sign Date Time Temp Pulse Resp B/P (MAP) Pulse Ox O2 Delivery O2 Flow Rate FiO2 07/17/24 13:26 Mask 7.0 100 07/17/24 13:26 100 12 100 07/17/24 08:33 97.6 101/50 (67) 97.6 Total Intake and Output 07/16/24 07/16/24 07/17/24 15:00 23:00 07:00 Intake Total 200 ml 100 ml 0 ml Output Total 200 ml Balance 200 ml -100 ml 0 ml medications Current Medications Medications Dose Ordered Sig/Frank Route Start Time Stop Time Status Last Admin Dose Admin Pantoprazole Sodium 40 mg DAILY IV 07/17/24 10:00 07/17/24 09:19 40 MG Ondansetron HCl 4 mg Q4HPRN PRN IV 07/16/24 07:45 07/17/24 09:20 4 MG Metronidazole 100 ml @ 100 mls/hr Q8HR IV 07/16/24 14:00 07/17/24 05:30 100 MLS/HR Ciprofloxacin 200 ml @ 200 mls/hr Q12HR IV 07/16/24 10:00 07/17/24 09:19 200 MLS/HR Fludrocortisone Acetate 0.1 mg DAILY PO 07/17/24 10:00 07/17/24 09:19 0.1 MG Morphine Sulfate 2 mg Q4HP PRN IV 07/16/24 17:45 07/16/24 23:11 2 MG Hydromorphone HCl 0.5 mg Q10M PRN IV 07/17/24 13:45 07/17/24 14:26 Hydromorphone HCl 0.5 mg Q4HPRN PRN IV 07/17/24 14:00 Examination General Appearance: Alert, Oriented X3, Cooperative, No acute distress HEENT: Atraumatic, PERRLA, EOMI, Mucous membrane moist/pink Respiratory: Clear to auscultation, Normal air movement Cardiovascular: Regular rate, Normal S1, Normal S2, No murmurs, no chest wall tenderness Abdominal: Abdomen is soft and mildly tender, incisions are clean, with no active bleeding or inflammation sign Extremities: No clubbing, No cyanosis, No edema, Normal pulses, No tenderness/swelling Skin: No rashes, No breakdown, No significant lesion Neuro: Normal gait, Normal speech, Strength at 5/5 X4 ext, Normal tone, Sensation intact, Cranial nerves 3-12 NL, Reflexes 2+ Psych/Mental Status: Mental status NL, Mood NL laboratory and microbiology Laboratory Tests 07/17/24 05:59 Test 07/17/24 05:59 Range/Units Serum Glucose 67 L 74-106 mg/dL Labs and/or images reviewed: Labs reviewed by me, Image(s) reviewed by me Problem List/Assessment/Plan Problem List/Assessment/Plan Gallstone with cholecystitis Ultrasound shows, Cholelithiasis and probable cholecystitis Status post laparoscopic cholecystectomy, with no perioperative complication IV fluid Empiric antibiotic, Flagyl and Cipro Pain management Asthma, stable Continue home meds DIET: Clear liquids diet GI PROPHYLAXIS:: Protonix CODE STATUS: Goal of care discussed for more than 18 minutes, full code DISPOSITION: Med/surge Patient is planned to be discharged tomorrow per surgery instruction. Patient's status and plan discussed with the patient at patient's mother and grandmother at bedside. Case discussed with Dr. Junior. Plan discussed with: Patient, Other (RN) My Orders My Orders Orders - EBEN CHAVEZ RESDITESHA Procedure Category Date Status Time Potassium Chloride PHA 07/17/24 In Process (Potassium Chloride). 11:00 Date of Service: Jul 17, 2024 Billing Provider: MARIUM ANDERS MD Common Visit Codes: [id number] INP/OBS CARE(HIGH) EBEN CHAVEZ RESDIENT Jul 17, 2024 14:50 MARIUM ANDERS MD Jul 20, 2024 15:03
[2024-07-17] MEDS: POTASSIUM CHLORIDE 40 MEQ, LIDOCAINE 1% (LOCAL ANESTH.) 4 ML in SODIUM CHL 0.9% 250 ML IV ONE (16:29)
[2024-07-17] MEDS: METOCLOPRAMIDE HCL 5MG/ml INJ 2ml VIAL IV ONE (17:08)
[2024-07-17] MEDS: HYDROmorphone HCL 2 MG/ML VL/or syr IV PRN (17:35)
[2024-07-18] VITALS (8 sets, daily range): BP systolic 103–118; BP diastolic 53–73; PULSE 70–82; RESP 18–20; TEMP 97.5–99.1; O2SAT 94–98
[2024-07-18 06:29] LABS: Basophils # (auto) 0 10 ^3/uL (0-0.2); Basophils % (auto) 0.3 % (0.0-2.0); Eosinophils # (auto) 0 10 ^3/uL (0-0.8); Eosinophils % (auto) 0.1 % (0.0-7.0); Hematocrit 37.7 % (36.0-46.0); Hemoglobin 13.1 g/dL (12.2-16.2); Lymphocytes # (auto) 0.8 10 ^3/uL (0.4-5.4); Lymphocytes % (auto) 6.5 % (10.0-50.0); Mean Corpuscular Hemoglobin 32.6 pg (28.0-32.0); Mean Corpuscular Hgb Conc. 34.7 g/dL (32.0-36.0); Mean Corpuscular Volume 93.9 fL (80.0-100.0); Monocytes # (auto) 1.3 10 ^3/uL (0-1.3); Monocytes % (auto) 9.8 % (0.0-12.0); Neutrophils # (auto) 10.7 10 ^3/uL (1.6-8.6); Neutrophils % (auto) 83.3 % (37.0-80.0); Platelet Count (auto) 289 10^3/uL (140-450); Red Blood Cells 4.01 10^6/uL (4.0-5.20); Red Cell Distribution Width 12.6 % (11.8-14.3); White Blood Cell 12.8 10^3/uL (4.4-10.8)
[2024-07-18 06:54] LABS: Albumin 4.1 g/dL (3.2-4.8); Alkaline Phosphatase 57 U/L (46-116); Anion Gap 7 (5-15); Aspartate Aminotransferase 38 U/L (13-40); BUN/Creatinine Ratio 7.7 (10.0-20.0); Bilirubin, Total 0.4 mg/dL (0.2-1.0); Carbon Dioxide 27 mmol/L (20-31); Chloride 102 mmol/L (98-107); Potassium 4.2 mmol/L (3.5-5.1); Sodium 136 mmol/L (136-145); Total Protein 6.6 g/dL (5.7-8.2)
[2024-07-18 07:01] LABS: Alanine Aminotransferase 41 U/L (7-40); Blood Urea Nitrogen 5 mg/dL (9-23); Glucose 121 mg/dL (74-106)
--- NOTE | 2024-07-18 20:26 | DVHPN2 ---
Progress Note Date Seen: Jul 18, 2024 Has the PT tested + for MRSA If YES, has PT been informed?: No Medical Necessity Reason Pt with a Central, PICC or Fol: No Objective vital signs Vital Sign Date Time Temp Pulse Resp B/P (MAP) Pulse Ox O2 Delivery O2 Flow Rate FiO2 07/18/24 17:26 74 18 110/58 07/18/24 17:00 98.7 94 98.7 07/18/24 08:00 Room Air* 0 21 Total Intake and Output 07/17/24 07/17/24 07/18/24 15:00 23:00 07:00 Intake Total 300 ml 100 ml 800 ml Balance 300 ml 100 ml 800 ml medications Current Medications Medications Dose Ordered Sig/Frank Route Start Time Stop Time Status Last Admin Dose Admin Pantoprazole Sodium 40 mg DAILY IV 07/17/24 10:00 07/18/24 08:47 40 MG Ondansetron HCl 4 mg Q4HPRN PRN IV 07/16/24 07:45 07/18/24 00:35 4 MG Metronidazole 100 ml @ 100 mls/hr Q8HR IV 07/16/24 14:00 07/18/24 13:15 100 MLS/HR Ciprofloxacin 200 ml @ 200 mls/hr Q12HR IV 07/16/24 10:00 07/18/24 08:47 200 MLS/HR Fludrocortisone Acetate 0.1 mg DAILY PO 07/17/24 10:00 07/18/24 08:54 0.1 MG Morphine Sulfate 2 mg Q4HP PRN IV 07/16/24 17:45 07/18/24 13:15 2 MG Hydromorphone HCl 0.5 mg Q4HPRN PRN IV 07/17/24 14:00 07/18/24 00:35 0.5 MG laboratory and microbiology Laboratory Tests 07/18/24 05:27 Test 07/18/24 05:27 Range/Units Serum Glucose 121 H 74-106 mg/dL Problem List/Assessment/Plan Problem List/Assessment/Plan AFEBRILE VSS ABD SOFT OK CLEAR LIQUIDS WOUNDS HEALING LFT WNL NO COMPLICATIONS ADVANCE DIET CLEARED FOR DISCHARGE Plan discussed with: Patient Dietary Evaluation Review Comments: 1. Diet advancement to Low-Fat diet as tolerated for 2-3 weeks post-op 2. Encourage good oral intake of meals >75% 3. Will follow closely for diet advancement, pt not to go >5 days Clear Liquids only (Currently Day 2) Expected Outcomes/Goals: Maintain adequate nutrition, diet tolerance w/out GI sx s/p tej. RENÉ PINO MD Jul 18, 2024 20:26
[2024-07-18] MEDS ORDERED: SEVOFLURANE 250 ML SOL IN ONE (20:56)
--- NOTE | 2024-07-18 21:12 | DVHPN2 ---
MANDI FONSECA MD Jul 18, 2024 21:12
[2024-07-19 01:00] VITALS: BP 96/55; PULSE 66; RESP 18; TEMP 98.3; O2SAT 96
[2024-07-19 05:00] VITALS: BP 97/62; PULSE 68; RESP 18; TEMP 98; O2SAT 96
[2024-07-19 08:00] VITALS: RESP 18
[2024-07-19 09:00] VITALS: BP 110/69; PULSE 66; RESP 18; TEMP 98.4; O2SAT 95
--- NOTE | 2024-07-19 09:52 | DVHPN2 ---
Progress Note Date Seen: Jul 19, 2024 Has the PT tested + for MRSA If YES, has PT been informed?: No Medical Necessity Reason Pt with a Central, PICC or Fol: No Objective vital signs Vital Sign Date Time Temp Pulse Resp B/P (MAP) Pulse Ox O2 Delivery O2 Flow Rate FiO2 07/19/24 09:00 98.4 66 18 110/69 (83) 95 98.4 07/19/24 08:00 Room Air* 0 21 Total Intake and Output 07/18/24 07/18/24 07/19/24 15:00 23:00 07:00 Intake Total 100 ml 300 ml 714 ml Balance 100 ml 300 ml 714 ml medications Current Medications Medications Dose Ordered Sig/Frank Route Start Time Stop Time Status Last Admin Dose Admin Pantoprazole Sodium 40 mg DAILY IV 07/17/24 10:00 07/19/24 09:29 40 MG Ondansetron HCl 4 mg Q4HPRN PRN IV 07/16/24 07:45 07/18/24 00:35 4 MG Metronidazole 100 ml @ 100 mls/hr Q8HR IV 07/16/24 14:00 07/19/24 05:57 100 MLS/HR Ciprofloxacin 200 ml @ 200 mls/hr Q12HR IV 07/16/24 10:00 07/19/24 09:29 200 MLS/HR Fludrocortisone Acetate 0.1 mg DAILY PO 07/17/24 10:00 07/19/24 09:29 0.1 MG Morphine Sulfate 2 mg Q4HP PRN IV 07/16/24 17:45 07/18/24 13:15 2 MG Hydromorphone HCl 0.5 mg Q4HPRN PRN IV 07/17/24 14:00 07/18/24 21:54 0.5 MG laboratory and microbiology Laboratory Tests 07/18/24 05:27 Test 07/18/24 05:27 Range/Units Serum Glucose 121 H 74-106 mg/dL Problem List/Assessment/Plan Problem List/Assessment/Plan AFEBRILE VSS ABD SOFT OK DIET WOUNDS HEALING LFT WNL NO COMPLICATIONS CLEARED FOR DISCHARGE INSTRUCTIONS RE DIET ACTIVITY F/UP GIVEN Plan discussed with: Patient Dietary Evaluation Review Comments: 1. Diet advancement to Low-Fat diet as tolerated for 2-3 weeks post-op 2. Encourage good oral intake of meals >75% 3. Will follow closely for diet advancement, pt not to go >5 days Clear Liquids only (Currently Day 2) Expected Outcomes/Goals: Maintain adequate nutrition, diet tolerance w/out GI sx s/p tej. RENÉ PINO MD Jul 19, 2024 09:52
[2024-07-19] MEDS ORDERED: TRAM-626 PO (12:42)
[2024-07-19] MEDS ORDERED: FAMO-161 PO (12:42)
[2024-07-19] MEDS ORDERED: ACET-1079 PO (12:42)
[2024-07-19] MEDS ORDERED: LEVO500T91 PO (12:42)
[2024-07-19] MEDS ORDERED: IBU600T PO (12:42)
--- NOTE | 2024-07-19 12:48 | DVHDS2 ---
Discharge Summary Date of Admission Jul 16, 2024 at 00:44 Date of Discharge: Jul 19, 2024 Labs/Diagnostic Data: Laboratory Results Test 07/18/24 05:27 07/17/24 05:59 07/16/24 08:16 07/15/24 15:07 White Blood Count 12.8 10^3/uL (4.4-10.8) Red Blood Count 4.01 10^6/uL (4.0-5.20) Hemoglobin 13.1 g/dL (12.2-16.2) Hematocrit 37.7 % (36.0-46.0) Mean Corpuscular Volume 93.9 fL (80.0-100.0) Mean Corpuscular Hemoglobin 32.6 pg (28.0-32.0) Mean Corpuscular Hemoglobin Concent 34.7 g/dL (32.0-36.0) Red Cell Distribution Width 12.6 % (11.8-14.3) Platelet Count 289 10^3/uL (140-450) Mean Platelet Volume 7.1 fL (6.9-10.8) Neutrophils (%) (Auto) 83.3 % (37.0-80.0) Lymphocytes (%) (Auto) 6.5 % (10.0-50.0) Monocytes (%) (Auto) 9.8 % (0.0-12.0) Eosinophils (%) (Auto) 0.1 % (0.0-7.0) Basophils (%) (Auto) 0.3 % (0.0-2.0) Neutrophils # (Auto) 10.7 10 ^3/uL (1.6-8.6) Lymphocytes # (Auto) 0.8 10 ^3/uL (0.4-5.4) Monocytes # (Auto) 1.3 10 ^3/uL (0-1.3) Eosinophils # (Auto) 0 10 ^3/uL (0-0.8) Basophils # (Auto) 0 10 ^3/uL (0-0.2) Nucleated Red Blood Cells 0.0 % Sodium Level 136 mmol/L (136-145) Potassium Level 4.2 mmol/L (3.5-5.1) Chloride Level 102 mmol/L (98-107) Carbon Dioxide Level 27 mmol/L (20-31) Anion Gap 7 (5-15) Blood Urea Nitrogen 5 mg/dL (9-23) Creatinine 0.65 mg/dL (0.550-1.02) Glomerular Filtration Rate Calc 129 mL/min (>90) BUN/Creatinine Ratio 7.7 (10.0-20.0) Serum Glucose 121 mg/dL (74-106) Calcium Level 10.0 mg/dL (8.7-10.4) Total Bilirubin 0.4 mg/dL (0.2-1.0) Aspartate Amino Transferase (AST) 38 U/L (13-40) Alanine Aminotransferase (ALT) 41 U/L (7-40) Alkaline Phosphatase 57 U/L (46-116) Total Protein 6.6 g/dL (5.7-8.2) Albumin 4.1 g/dL (3.2-4.8) Prothrombin Time 11.0 sec (9.3-11.8) Prothrombin Time INR 1.04 (0.9-1.15) Activated Partial Thromboplast Time 24.7 SEC (24.5-34.5) Magnesium Level 2.0 mg/dL (1.6-2.6) D-Dimer, Quantitative < 0.19 mg/L FEU (0.0-0.49) Troponin I High Sensitivity < 3 ng/L (</=34) Triglycerides Level 46 mg/dL (< 150) Cholesterol Level 141 mg/dL (< 200) LDL Cholesterol 61 mg/dL (< 100) HDL Cholesterol 70 mg/dL (40-59) Thyroid Stimulating Hormone (TSH) 1.21 uIU/mL (0.55-4.78) Beta HCG, Quantitative 1.7 mIU/mL (1.5-4.2) Lipase 50 U/L (12-53) Test 07/15/24 15:00 Urine Color Colorless (Yellow) Urine Clarity Turbid (Clear) Urine pH 7.0 (5.0-9.0) Urine Specific [place] 1.014 (1.001-1.035) Urine Protein Negative (Negative) Urine Ketones Negative (Negative) Urine Blood 2+ /uL (Negative) Urine Nitrite Negative (Negative) Urine Bilirubin Negative (Negative) Urine Urobilinogen Normal mg/dL (Negative) Urine Leukocyte Esterase Trace /uL (Negative) Urine RBC 1 /hpf (0 - 4) Urine Microscopic WBC 3 /HPF (0-5) Urine Squamous Epithelial Cells Few /hpf (<5) Urine Bacteria Few /hpf (None Seen) Urine Yeast (Budding) Few /hpf (None Seen) Urine Glucose Normal mg/dL (Normal) Urine Test Negative (Negative) Urine Opiates Screen Neg (NEGATIVE) Urine Fentanyl Screen Neg (NEGATIVE) Urine Barbiturates Screen Neg (NEGATIVE) Urine Phencyclidine Screen Neg (NEGATIVE) Urine Amphetamines Screen Neg (NEGATIVE) Urine Benzodiazepines Screen Neg (NEGATIVE) Urine Cocaine Screen Neg (NEGATIVE) Urine Cannabinoids Screen Neg (NEGATIVE) Other Laboratory Tests 07/18/24 05:27 Final Diagnosis/Problems List acute cholecystitis s/p lap tej Discharge Disposition: Home Discharge Instruct/Medications Diet: See Comment Diet comment: full liq, escalate as able Activity: No Restrictions, As Tolerated Follow Up/Referral: surgery pcp Discharge Statement: "Patient was advised to return to the ER or call 911 if any headaches, dizziness, shortness of breath, chest pain, abdominal pain, bleeding, fevers, or worsening of medical condition. Patient was counseled about treatment plan, medications, possible side effects, patientverbalized understanding. All questions were answered to the best of my ability. This discharge took greater then 30 minutes in planning, reviewing documentation, counseling the patient, and discussing with other team members." ASSESSMENT ASSESSMENT Assessment acute cholecystitis s/p lap tej MANDI FONSECA MD Jul 19, 2024 12:48
[2024-07-19] MEDS ORDERED: METR-344 PO (12:50)
[2024-07-19 13:00] VITALS: BP 102/64; PULSE 75; RESP 18; TEMP 98.2; O2SAT 97
== END 2024-07-19 14:28 | disposition home or self-care (01) | DRG 263 ==
LOC: ER 14:40 → OVERFLOW 07-16 00:44 → EAST 07-16 17:55
PROVIDERS: ADMIT Student in an Organized Health Care Education/Training Program; ATTEND Student in an Organized Health Care Education/Training Program
PROC: 0FT44ZZ Resection of Gallbladder, Percutaneous Endoscopic Approach (ICD-10-PCS; principal; 2024-07-17 11:49)
DX: K80.00 Calculus of gallbladder with acute cholecystitis without obstruction (principal); G90.A Postural orthostatic tachycardia syndrome [POTS]; J45.909 Unspecified asthma, uncomplicated; Z79.899 Other long term (current) drug therapy
CPT/HCPCS: 36415; 76705; 80053; 80061; 80307; 81001; 81025; 83690; 83735; 84443; 84484; 84702; 85025; 85379; 85610; 85730; 86850; 86900; 86901; 96361; 96374; 96375; G0378; J1100; J1885; J2003; J2250; J2405; J2470; J2704; J3490